=== PATIENT | female | born 1930 | race American Indian/Alaskan Native ===

== ENCOUNTER 2018-05-13 07:56 | Day surgery (SDC) | payer MEDICARE, BC ==
[2014-07-16 09:01] VITALS: BMI 28.9
[2018-05-13] MEDS ORDERED: Lidocaine Hydrochloride 5 ML INJ ONE (08:40)
--- NOTE | 2018-05-13 09:45 | CP.SDSHP ---
Same Day Surgery H & P - History Proposed Procedure: US guided thoracentesis Pre-Op Diagnosis: Left pleural effusion - Allergies Allergies: Allergies No Known Allergies Allergy (Verified 05/08/18 10:04) - Physical Exam Mental Status: Alert & Oriented x3 - Impression Impression: Pt with moderate left pleural effusion. Plan US guided left thoracentesis. Pt. Evaluated Today:Candidate for Anesthesia & Procedure: No - Date & Time Date: 05/13/18 Time: 09:40 Short Stay Discharge - Short Stay Discharge Admitting Diagnosis/Reason for Visit: BREAST CA C50.912/Z17.0 Disposition: HOME/ ROUTINE
--- NOTE | 2018-05-13 09:48 | PCM.SURG1 ---
Surgeon's Initial Post Op Note - Surgeon's Notes Surgeon: Hector Bustillos MD Drying Equipment Operator: NONE Type of Anesthesia: Local Pre-Operative Diagnosis: Left pleural effusion, breast cancer Operative Findings: US showed moderate left pleural effusion Post-Operative Diagnosis: Left pleural effusion, breast cancer Operation Performed: US guided thoracentesis Specimen/Specimens Removed: 750 cc of slightly serosanguinous fluid Estimated Blood Loss: EBL {In ML}: 0 Blood Products Given: N/A Drains Used: No Drains Post-Op Condition: Fair Date of Surgery/Procedure: 05/13/18 Time of Surgery/Procedure: 09:45
--- NOTE | 2018-05-13 14:26 | RAD ---
Date of service: 05/13/2018 HISTORY: Status post left thoracentesis Relevant interventional procedure(s): May 13 2018. Left thoracentesis. COMPARISON: 04/24/2018 CT thorax documenting large partially loculated left pleural effusion. 10/25/2016 CT thorax FINDINGS: LUNGS: The large left pleural effusion previously identified has been evacuated from the pleural space. Left lung remains collapsed resulting in the residual pneumothorax ex vacuo. PLEURA: No residual pleural effusion identified. Left pneumothorax expected following thoracentesis and degree collapsed and compressed left lung. No evidence of tension pneumothorax. CARDIOVASCULAR: Normal. OSSEOUS STRUCTURES: No significant abnormalities. VISUALIZED UPPER ABDOMEN: Normal. OTHER FINDINGS: None. IMPRESSION: Status post left thoracentesis with vacuo a brito of previously identified large partially loculated pleural effusion. The absence of re-expansion of the left lung given the degree of compressive atelectasis is an expected finding. No tension pneumothorax.
--- NOTE | 2018-05-19 10:56 | US ---
PROCEDURE: Date of procedure: 05/13/2018 Procedure: 1. Ultrasound-guided left thoracentesis, CPT 70593 Medications: 5cc 1% Lidocaine HISTORY: Left pleural effusion, shortness of breath TECHNIQUE: Following informed consent ,the Patients' left chest was marked. Procedure time-out was called, and the patient was placed in the sitting position and limited ultrasound showed a large left effusion. The patient's left back was prepped and draped in the usual sterile fashion. After the skin was anesthetized with lidocaine, a drainage catheter was advanced under ultrasound guidance into the pleural space. Ultrasound-guided thoracentesis was performed. A total of 800 cubic centimeters of serosanguinous fluid removed without complication. A Xeroform dressing was applied. IMPRESSION: Ultrasound guided left thoracentesis. There were no immediate complications.
== END 2018-05-13 11:15 | disposition home or self-care (01) ==
LOC: C.SPRAD 07:56
PROVIDERS: ATTEND Radiology Vascular & Interventional Radiology
DX: J90 Pleural effusion, not elsewhere classified (principal); Z17.0 Estrogen receptor positive status [ER+]; C50.919 Malignant neoplasm of unspecified site of unspecified female breast